=== PATIENT | female | born 1980 | race Caucasian/White ===

== ENCOUNTER 2020-11-18 10:34 | Outpatient (REF) | payer OTHER, SELFPAY ==
[2020-11-18 12:08] LABS: MANUAL DIFF FLAG NO
[2020-11-18 12:22] LABS: Basophils Absolute Auto 0.1 X10*3/uL (0.0-0.2); Basophils Percent Auto 0.7 % (0-2); Eosinophils Absolute Auto 0.2 X10*3/uL (0.0-0.4); Eosinophils Percent Auto 2.7 % (0-4); Hematocrit 42.7 % (37-47); Hemoglobin 14.3 g/dl (12.0-16.0); Imm Gran Abs Auto 0.02 X10*3/uL (0.00-0.03); Imm Gran Pct Auto 0.3 % (0.0-0.4); Lymphocytes Absolute Auto 1.9 X10*3/uL (1.2-4.9); Lymphocytes Percent Auto 27.8 % (20-40); Mean Corpuscular HGB Conc 33.5 g/dl (31.0-35.0); Mean Corpuscular Hemoglobin 30.1 pg (27.0-33.0); Mean Corpuscular Volume 89.9 fL (80-98); Mean Platelet Volume 10.2 fL (9.4-12.3); Monocytes Absolute Auto 0.4 X10*3/uL (0.1-1.2); Monocytes Percent Auto 5.6 % (2-11); Neutrophils Absolute Auto 4.4 X10*3/uL (2.0-8.3); Neutrophils Percent Auto 62.9 % (45-73); Platelet Count 258 X10*3/uL (160-400); Red Blood Count 4.75 X10*6/uL (4.20-5.50); Red Cell Distribution Width 11.9 % (11.0-16.0)
[2020-11-18 13:07] LABS: Erythrocyte Sedimentation Rate 4 MM/HR (0-20)
[2020-11-18 13:08] LABS: Alanine Aminotransferase 10 U/L (0-31); Alkaline Phosphatase 56 U/L (39-117); Anion Gap 11 (12-20); Aspartate Amino Transferase 16 U/L (5-31); Blood Urea Nitrogen 15 mg/dL (9-16); C Reactive Protein 0.17 mg/dL (< or = 0.50); Calcium 8.9 mg/dL (8.4-10.2); Carbon Dioxide 27 mmol/L (22-29); Chloride 104 mmol/L (96-108); Estimated Glomerular Filt Rate > 60; Glucose Random 86 mg/dL (60-115); Potassium 4.4 mmol/L (3.3-5.1); Sodium 138 mmol/L (135-145); Total Protein 7.2 g/dL (6.5-8.0)
[2020-11-18 13:11] LABS: Bilirubin Total 0.3 mg/dL (0.0-1.0)
== END 2020-11-18 10:35 | disposition home or self-care (01) ==
LOC: HO.LAB 10:34
PROVIDERS: PCP Internal Medicine; Visit Provider Student in an Organized Health Care Education/Training Program
DX: M05.9 Rheumatoid arthritis with rheumatoid factor, unspecified (principal); Z79.899 Other long term (current) drug therapy
CPT/HCPCS: 36415; 80053; 85025; 85652; 86140

== ENCOUNTER 2021-09-27 07:59 | Outpatient (REF) | payer OTHER, SELFPAY ==
[2021-09-27 11:26] LABS: MANUAL DIFF FLAG NO
[2021-09-27 11:46] LABS: Basophils Absolute Auto 0.1 X10*3/uL (0.0-0.2); Basophils Percent Auto 0.8 % (0-2); Eosinophils Absolute Auto 0.2 X10*3/uL (0.0-0.4); Eosinophils Percent Auto 3.5 % (0-4); Hematocrit 41.8 % (37.0-47.0); Hemoglobin 14.2 g/dl (12.0-16.0); Imm Gran Abs Auto 0.01 X10*3/uL (0.00-0.03); Imm Gran Pct Auto 0.2 % (0.0-0.4); Lymphocytes Percent Auto 30.2 % (20-40); Mean Corpuscular Hemoglobin 29.5 pg (27.0-33.0); Mean Corpuscular Volume 86.9 fL (80.0-98.0); Mean Platelet Volume 10.4 fL (9.4-12.3); Monocytes Absolute Auto 0.4 X10*3/uL (0.1-1.2); Monocytes Percent Auto 6.2 % (2-11); Neutrophils Absolute Auto 3.9 x10*3/uL (2.0-8.3); Neutrophils Percent Auto 59.1 % (45-73); Platelet Count 253 X10*3/uL (160-400); Red Blood Count 4.81 X10*6/uL (4.20-5.50); Red Cell Distribution Width 11.8 % (11.0-16.0); White Blood Count 6.6 X10*3/uL (4.8-10.8)
[2021-09-27 12:03] LABS: Alanine Aminotransferase 13 U/L (0-31); Albumin Level 3.9 g/dL (3.5-5.0); Alkaline Phosphatase 52 U/L (39-117); Anion Gap 16 (12-20); Aspartate Amino Transferase 16 U/L (5-31); Bilirubin Total 0.4 mg/dL (0.0-1.0); Blood Urea Nitrogen 17 mg/dL (9-16); C Reactive Protein 0.24 mg/dL (< or = 0.50); Calcium 9.2 mg/dL (8.4-10.2); Carbon Dioxide 20 mmol/L (22-29); Chloride 105 mmol/L (96-108); Estimated Glomerular Filt Rate > 60; Glucose Random 72 mg/dL (60-115); Sodium 137 mmol/L (135-145)
[2021-09-27 12:23] LABS: Erythrocyte Sedimentation Rate 5 MM/HR (0-20)
== END 2021-09-27 08:00 | disposition home or self-care (01) ==
LOC: HO.WFDLDS 07:59
PROVIDERS: Visit Provider Nurse Practitioner Family
DX: M05.9 Rheumatoid arthritis with rheumatoid factor, unspecified (principal)
CPT/HCPCS: 36415; 80053; 85025; 85652; 86140

== ENCOUNTER → 2021-09-30 10:00 | Outpatient (BNVA) | payer OTHER, SELFPAY | PROVIDERS: PCP Internal Medicine; Visit Provider Nurse Practitioner Family ==

== ENCOUNTER 2021-10-05 07:56 | Outpatient (RCR) | payer OTHER, SELFPAY ==
--- NOTE | 2021-10-05 12:12 | MHC.PT.EP ---
[facility] [place] Office [place] Office [place] Office [address] Tonja Salazar [address] [phone] F: [phone] F: [phone] F: [phone] F: [phone] Physical Therapy Plan of Care Date of Evaluation: Date of Surgery: NA Diagnosis: CERVICAL SPINE PAIN Assessment: Pt IS 41 YO RHD F REFERRED TO PT FROM [facility] ([facility]) WITH NECK PAIN (Pt ALSO REPORTS SOME HIP PAIN ALSO WHICH WILL BE ADDRESSED AT A LATER TIME). Pt REPORTS LONG HX OF NECK PAIN WITHOUT INJURY. 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 REPORTS NO PT TRIAL IN PAST. PRESENTS WITH SLIGHT FWD HEAD AND ROUNDED SHLDERS (HAS SITTING-TYPE JOB), SLIGHTLY DECREASED END RANGE CERV LAT FLEXION ROM, SHLDER ROM WFLS, DENIES PARESTHESIA. REPORTS UPPER TRAP/CERV MMS FEEL TIGHT (TIGHTNESS NOTED UPON PALPATION), Pt WITH NEGATIVE MODIFIED SPURLING TEST BUT REPORT SLIGHT SXS WITH RETURN TO NEUTRAL FROM L CERV LAT FLEX/EXT/ROT. SHOULD BENEFIT FROM PT TO HELP EASE UPPER BODY MM TENSION TO HELP ALLEVIATE NECK PAIN. SHOULD BENEFIT FROM POSTURE WORK AND UPPER BODY/CERV STRENGTHENING. Frequency and Duration: The patient will be seen 2X/WK X 6 WKS Short Term Goals: 1. INCREASED POSTURE AWARENESS AND AWARENESS NECK CARE 2. IMPROVED SLEEP 3. I HEP WITH DC EX PLAN Assisted Goals: 1. IMPROVED NDI ( SOC) 2. DECREASED CERV PAIN AT LEAST 50% WITH ADLS 3. CERV LAT FLEX ROM EQUAL B Treatment Plan: Modalities to reduce pain, spasms and effusion. Manual therapy to restore motion and function. Therapeutic exercise to improve strength and flexibility. Neuromuscular re-education for posture and balance. Therapeutic activities to return to functional activities of daily living. Electronically signed by: BURT MURO PT Please sign and return to therapist. Thank you for your referral.
--- NOTE | 2021-10-28 09:39 | MHC.PT.DC ---
[facility] [place] Office [place] Office [place] Office [address] Tonja Salazar [address] [phone] F: [phone] F: [phone] F: [phone] F: [phone] Physical Therapy Discharge Report Diagnosis: CERVICAL SPINE PAIN Date of Surgery: NA Date of Evaluation: 10/05/21 Date of Discharge: 10/28/21 Treatments to Date: 1 Cancellations to Date: No Shows to Date: Discharge Status: Patient Elected to Stop Discharge Summary: Pt SEEN FOR INIT EVAL. PER THAT ASSESSMENT:Pt IS 41 YO RHD F REFERRED TO PT FROM [facility] ([facility]) WITH NECK PAIN (Pt ALSO REPORTS SOME HIP PAIN ALSO WHICH WILL BE ADDRESSED AT A LATER TIME). Pt REPORTS LONG HX OF NECK PAIN WITHOUT INJURY. 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 REPORTS NO PT TRIAL IN PAST. PRESENTS WITH SLIGHT FWD HEAD AND ROUNDED SHLDERS (HAS SITTING-TYPE JOB), SLIGHTLY DECREASED END RANGE CERV LAT FLEXION ROM, SHLDER ROM WFLS, DENIES PARESTHESIA. REPORTS UPPER TRAP/CERV MMS FEEL TIGHT (TIGHTNESS NOTED UPON PALPATION), Pt WITH NEGATIVE MODIFIED SPURLING TEST BUT REPORT SLIGHT SXS WITH RETURN TO NEUTRAL FROM L CERV LAT FLEX/EXT/ROT. SHOULD BENEFIT FROM PT TO HELP EASE UPPER BODY MM TENSION TO HELP ALLEVIATE NECK PAIN. SHOULD BENEFIT FROM POSTURE WORK AND UPPER BODY/CERV STRENGTHENING. 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 Thank you for your referral.
== END 2021-10-28 09:40 | disposition home or self-care (01) ==
LOC: HO.PTWFD 07:56
PROVIDERS: PCP Internal Medicine; Visit Provider Nurse Practitioner Family
DX: M54.2 Cervicalgia (principal)
CPT/HCPCS: 97110; 97140; 97161

== ENCOUNTER 2022-04-04 13:06 | Outpatient (REF) | payer OTHER, SELFPAY ==
--- NOTE | ~2022-04-04 | XR_ITS ---
EXAMINATION: XR SACROILIAC JOINTS CLINICAL INFORMATION: Pain COMPARISON: Lumbar spine x-ray October 2016 TECHNIQUE: 3 views of the sacroiliac joints FINDINGS: Bone alignment is normal. No fracture or dislocation is seen. The sacroiliac joints are normal. Transitional lumbar sacral anatomy with pseudoarticulation of S1 and S2 on the right similar to lumbar spine x-ray. Normal soft tissues.. XR/XR sacroiliac joint min 3V IMPRESSION: Normal sacroiliac joints.
[2022-04-04 13:27] LABS: MANUAL DIFF FLAG NO
[2022-04-04 13:53] LABS: Basophils Absolute Auto 0.1 X10*3/uL (0.0-0.2); Basophils Percent Auto 0.9 % (0-2); Eosinophils Absolute Auto 0.2 X10*3/uL (0.0-0.4); Eosinophils Percent Auto 3.2 % (0-4); Hematocrit 40.6 % (37.0-47.0); Hemoglobin 13.7 g/dl (12.0-16.0); Imm Gran Abs Auto 0.01 X10*3/uL (0.00-0.03); Imm Gran Pct Auto 0.2 % (0.0-0.4); Lymphocytes Percent Auto 36.1 % (20-40); Mean Corpuscular HGB Conc 33.7 g/dl (31.0-35.0); Mean Corpuscular Hemoglobin 29.3 pg (27.0-33.0); Mean Corpuscular Volume 86.9 fL (80.0-98.0); Mean Platelet Volume 10.2 fL (9.4-12.3); Monocytes Absolute Auto 0.4 X10*3/uL (0.1-1.2); Neutrophils Absolute Auto 2.9 x10*3/uL (2.0-8.3); Neutrophils Percent Auto 52.6 % (45-73); Platelet Count 281 X10*3/uL (160-400); Red Blood Count 4.67 X10*6/uL (4.20-5.50); Red Cell Distribution Width 12.3 % (11.0-16.0); White Blood Count 5.6 X10*3/uL (4.8-10.8)
[2022-04-04 15:05] LABS: Erythrocyte Sedimentation Rate 8 MM/HR (0-20)
[2022-04-04 16:36] LABS: Alanine Aminotransferase 11 U/L (0-31); Albumin Level 3.9 g/dL (3.5-5.0); Alkaline Phosphatase 62 U/L (39-117); Anion Gap 13 (12-20); Aspartate Amino Transferase 15 U/L (5-31); Bilirubin Total < 0.2 mg/dL (0.0-1.0); Blood Urea Nitrogen 15 mg/dL (9-16); C Reactive Protein 0.31 mg/dL (< or = 0.50); Calcium 9.4 mg/dL (8.4-10.2); Carbon Dioxide 24 mmol/L (22-29); Chloride 107 mmol/L (96-108); Estimated Glomerular Filt Rate > 60; Glucose Random 96 mg/dL (60-115); Potassium 4.6 mmol/L (3.3-5.1); Sodium 139 mmol/L (135-145)
[2022-04-11 08:12] LABS: HLA B27 Negative (Negative)
== END 2022-04-04 13:07 | disposition home or self-care (01) ==
LOC: HO.LAB 13:06
PROVIDERS: PCP Internal Medicine; Visit Provider Nurse Practitioner Family
DX: M05.9 Rheumatoid arthritis with rheumatoid factor, unspecified (principal); M53.3 Sacrococcygeal disorders, not elsewhere classified
CPT/HCPCS: 36415; 72202; 80053; 85025; 85652; 86140; 86812

== ENCOUNTER 2022-07-31 09:21 | Outpatient (REF) | payer OTHER, SELFPAY ==
--- NOTE | ~2022-07-31 | XR_ITS ---
EXAMINATION: XR CERVICAL SPINE CLINICAL INFORMATION: Neck pain COMPARISON: Previous x-ray October 2016 TECHNIQUE: 3 views of the cervical spine were obtained. FINDINGS: Bone alignment is normal. No acute fracture or dislocation. Slight loss of height of the anterior superior endplate of the C4 vertebral body questionable for congenital variant versus changes related to old trauma. This is unchanged. Degenerative spondylosis and degenerative disc disease from C5-C6 to C7-T1. Mild degenerative spondylosis at C4-C5. Prevertebral soft tissues are normal. XR/XR cervical spine 2V IMPRESSION: Multilevel degenerative changes of the lower cervical spine increased from 2017 exam.
--- NOTE | ~2022-07-31 | MR_ITS ---
EXAMINATION: MR PELVIS WITHOUT CONTRAST CLINICAL INFORMATION: Low back pain x 7 years. COMPARISON: Radiographs dated 04/04/2022. TECHNIQUE: Multiplanar MR imaging was obtained through the pelvis on a 1.5 Lupe magnet with special attention to the sacroiliac joints. FINDINGS: Sacroiliac joints appear relatively well preserved without significant subchondral marrow signal abnormalities. Small marginal osteophytes are suspected. Articular cartilage appears relatively well preserved. No effusions or synovitis. No findings of sacroiliitis. No acute osseous abnormalities are identified in the remainder the osseous pelvis, though it is incompletely assessed on these images. No osseous lesions are identified. Mild osteoarthritis of the pubic symphysis. Hip joints are not well seen. There is Castellvi type IIA transitional anatomy at the lumbosacral junction with a degenerated pseudoarticulation between the right L5 transverse process and the sacrum. There is [id number] degenerative disc disease at L4-L5 with Modic type I and type II marrow changes, loss of intervertebral disc height, and a diffuse disc bulge. Mild right neural foraminal encroachment is suspected due to the disc bulge. This level is incompletely assessed on these images. Imaged intrapelvic soft tissues are unremarkable. No appreciable adenopathy. No acute bowel abnormalities. MR/MR pelvis wo con IMPRESSION: 1. Normal MR appearance of the sacroiliac joints. No evidence of sacroiliitis. 2. Moderate to severe degenerative disc disease at L4-L5, incompletely assessed on this study. 3. 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
== END 2022-07-31 09:22 | disposition home or self-care (01) ==
LOC: HO.MRI 09:21
PROVIDERS: PCP Internal Medicine; Visit Provider Nurse Practitioner Family
DX: M53.3 Sacrococcygeal disorders, not elsewhere classified (principal); M54.2 Cervicalgia
CPT/HCPCS: 72040; 72195

== ENCOUNTER 2024-02-28 07:55 | Outpatient (REF) | payer OTHER, SELFPAY ==
[2024-02-28 08:13] LABS: MANUAL DIFF FLAG NO
[2024-02-28 08:49] LABS: Appearance Urine Clear; Color Urine Dark Yellow; Glucose Urine UA Negative (Negative); Leukocyte Esterase Urine Negative (Negative); Nitrite Urine Negative (Negative); Specific Gravity - Urine 1.025 (1.005-1.025); UMIC TRIGGER UA YES; Urine Blood Trace (Negative); Urine Ketones Trace mg/dL (Negative); Urine Protein Negative (Neg-Trace)
[2024-02-28 08:52] LABS: Bacteria Urine None Seen (None Seen); Hyaline Casts Urine 0-2 /LPF (0-2); Squamous Epithelial Cell Urine 0-2 /HPF (0-2); WBC Urine 0-5 /HPF (0-5)
[2024-02-28 08:54] LABS: Basophils Percent Auto 0.7 % (0-2); Eosinophils Absolute Auto 0.3 X10*3/uL (0.0-0.4); Eosinophils Percent Auto 4.3 % (0-4); Hematocrit 39.8 % (37.0-47.0); Hemoglobin 13.6 g/dl (12.0-16.0); Imm Gran Abs Auto 0.01 X10*3/uL (0.00-0.03); Imm Gran Pct Auto 0.2 % (0.0-0.4); Lymphocytes Absolute Auto 1.9 X10*3/uL (1.2-4.9); Lymphocytes Percent Auto 32.7 % (20-40); Mean Corpuscular HGB Conc 34.2 g/dl (31.0-35.0); Mean Corpuscular Hemoglobin 29.1 pg (27.0-33.0); Mean Corpuscular Volume 85.2 fL (80.0-98.0); Mean Platelet Volume 9.9 fL (9.4-12.3); Monocytes Absolute Auto 0.4 X10*3/uL (0.1-1.2); Monocytes Percent Auto 6.9 % (2-11); Neutrophils Absolute Auto 3.2 x10*3/uL (2.0-8.3); Neutrophils Percent Auto 55.2 % (45-73); Platelet Count 267 X10*3/uL (160-400); Red Blood Count 4.67 X10*6/uL (4.20-5.50); Red Cell Distribution Width 12.8 % (11.0-16.0); White Blood Count 5.8 X10*3/uL (4.8-10.8)
[2024-02-28 09:03] LABS: Alanine Aminotransferase 13 U/L (0-31); Albumin Level 3.7 g/dL (3.5-5.0); Alkaline Phosphatase 69 U/L (39-117); Anion Gap 13 (12-20); Aspartate Amino Transferase 16 U/L (5-31); Bilirubin Total 0.3 mg/dL (0.0-1.0); Blood Urea Nitrogen 13 mg/dL (9-16); C Reactive Protein 0.81 mg/dL (< or = 0.50); Calcium 9.1 mg/dL (8.4-10.2); Carbon Dioxide 23 mmol/L (22-29); Chloride 108 mmol/L (96-108); Estimated Glomerular Filt Rate > 60; Glucose Random 79 mg/dL (60-115); Potassium 3.7 mmol/L (3.3-5.1); Sodium 140 mmol/L (135-145); Total Protein 6.9 g/dL (6.5-8.0); Uric Acid 4.1 mg/dL (2.4-5.7)
[2024-02-28 09:25] LABS: HBS Num1 101.96 mIU/mL (0-7.99); HBc Num1 0.12 S/CO (0.00-0.79); HBsAGNum1 0.18 S/CO (0.00-0.99); Hepatitis A Antibody IgM 0.15 Index (0-0.79); Hepatitis B Core Antibody Nonreactive (Nonreactive); Hepatitis B Surface Antigen Negative (Negative); ~HepC Num1 0.14 S/CO (0.00-0.79); ~Hepatitis A Antibody IgM Nonreactive (Nonreactive); ~Hepatitis B Surface Antibody REACTIVE (Nonreactive); ~Hepatitis C Antibody Nonreactive (Nonreactive)
[2024-02-28 09:37] LABS: Erythrocyte Sedimentation Rate 12 MM/HR (0-20)
[2024-02-29 12:48] LABS: Prot Elec - Albumin 3.7 g/dL (3.8-4.8); Prot Elec - Alpha1 0.3 g/dL (0.2-0.3); Prot Elec - Alpha2 0.7 g/dL (0.5-0.9); Prot Elec - Beta 1 0.5 g/dL (0.4-0.6); Prot Elec - Beta 2 0.4 g/dL (0.2-0.5); Prot Elec - Gamma 1.1 g/dL (0.8-1.7); Prot Elec - Total Protein 6.7 g/dL (6.1-8.1)
[2024-02-29 14:13] LABS: Anti-Centromere B Antibodies <1.0 NEG AI (<1.0 NEG)
[2024-02-29 14:34] LABS: Anti DNA DS Antibody 2 IU/mL; Antibody to SS-A Antigen <1.0 NEG AI (<1.0 NEG); Antibody to SS-B Antigen <1.0 NEG AI (<1.0 NEG); SM/Ribonucleoprotein Ab <1.0 NEG AI (<1.0 NEG); Scleroderma 70 Antibody <1.0 NEG AI (<1.0 NEG); Smith Protein <1.0 NEG AI (<1.0 NEG)
[2024-03-02 08:53] LABS: TS Negative Control Passed; TS Panel A 0; TS Panel B 0; TS Positive Control Passed; TSpotTB Negative (Negative)
[2024-03-03 14:34] LABS: IgA 227 mg/dL (47-310); IgG 1208 mg/dL (600-1640); IgM 101 mg/dL (50-300)
[2024-03-04 12:14] LABS: Vitamin D 25-OH, D2 10 ng/mL; Vitamin D 25-OH, D3 38 ng/mL; Vitamin D 25-OH, Total 48 ng/mL (30-100)
[2024-03-05 08:54] LABS: Complement C3 104 mg/dL (83-193)
[2024-03-06 15:43] LABS: Anti Nuclear Antibody Pattern Nuclear, Speckled; Anti Nuclear Antibody Screen POSITIVE (NEGATIVE); Anti Nuclear Antibody Titer 1:40 titer
== END 2024-02-28 07:56 | disposition home or self-care (01) ==
LOC: HO.LAB 07:55
PROVIDERS: PCP Internal Medicine; Visit Provider Nurse Practitioner Family
DX: M05.9 Rheumatoid arthritis with rheumatoid factor, unspecified (principal); M25.50 Pain in unspecified joint; Z11.9 Encounter for screening for infectious and parasitic diseases, unspecified
CPT/HCPCS: 36415; 80053; 81001; 82306; 82550; 82784; 84165; 84550; 85025; 85652; 86038; 86039; 86140; 86160; 86225; 86235; 86334; 86481; 86704; 86706; 86709; 86803; 87340

== ENCOUNTER 2024-03-04 15:43 | Outpatient (AMB) | payer OTHER, SELFPAY ==
[2024-03-04 15:45] VITALS: BP 137/78; PULSE 88; O2SAT 97; BMI 37.9
--- NOTE | 2024-03-04 15:45 | MHC.OFFVIS ---
Vital Signs 03/04/24 15:45 Height 5 ft 5 in Weight 227 lb 11.8 oz BMI 37.9 BP 137/78 Blood Pressure Location Rt brachial Position Sitting Pulse 88 Pulse Oximetry (%) 97 Intake Visit Reasons: RA Intake Note: Patient presents today for RA follow up. Patient reports no concerns today. 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 43-year-old female with seropositive RA returns for follow-up. She takes hydroxychloroquine 200 mg daily. She states that 2 tabs daily cause GI upset. states that over the last 6 months or so she has been having worsening low back and hip pain. Back pain is worse when she sits down for some time. She has bilateral groin pain in the middle of the night. She used to take Aleve 1-2 tabs a day but over the last 6 months she has been taking ibuprofen 600 mg daily. It does help her back pain but does not completely take it away. she has morning stiffness of her back lasting 15-20 minutes. She does not recall ever having any pain or swelling in her peripheral joints. She states that she was diagnosed with Crohn's colitis 2018 after a biopsy but she never required any Specific treatment. her mother has psoriatic arthritis and her maternal grandmother had rheumatoid arthritis. Previous hx: Patient admits to fatigue that started in 2005, which was around the time that she was diagnosed with RA. She states that she has never had any significant joint swelling. She denies joint pain, swelling or stiffness in her hands and feet today. She denies ever having pain in her feet. She admits to some stiffness in the morning in her hips that lasts for 30 minutes. She states that her symptoms are worse now than in previous months. Pain is most notable when lying on the hips or first thing in the morning when bending over to pick something off the ground. She also reports neck pain, for which she was taking tizanidine now with little effect. She states that her neck pain is constant and nothing makes it feels better. She has tried PT and did not find it helpful. She states that her joint pain is improved with Aleve 220mg once a day. She states that she when took the Aleve daily in 2017 she had a Chrons flare. She states that she is taking Aleve almost daily now, no Chrons flare since [id number] and her pain is improved with the Aleve. She admits to some depression. Denies sleep disturbance. Diagnosed with Crohns in 2018 while she was . She states that her disease is currently stable, states that she would get flares when she is stressed. She has not required any medication for this and has not followed up since 2018, Dr Jesusita Manzo at [facility]. No bloody diarrhea or mucus in stool. PENDING SALE TO [facility] Medical History (Updated 03/04/24 @ 22:10 by Eduardo Alarcon MD) Crohn disease Seropositive rheumatoid arthritis Surgical History History of carpal tunnel release H/O hemorrhoidectomy Hx of lithotripsy Hx of section Family History Father No problems noted. 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[facility] [place] Reports back pain, Denies joint swelling and Reports stiffness Physical Exam Vital Signs: Last Vital Signs Pulse 88 03/04/24 15:45 BP 137/78 03/04/24 15:45 Pulse Ox 97 03/04/24 15:45 BMI result Body Mass Index 37.9 Const General: cooperative, healthy appearing and comfortable Nutritional Appearance: obese morbidly obese Orientation/consciousness: patient oriented x3 Limitations: no limitations HEENT Head: Yes normocephalic and Yes atraumatic Resp Effort & Inspection: normal respiratory effort and able to speak in complete sentences Auscultation: clear to auscultation bilaterally Cardio Rate: regular rate Rhythm: regular rhythm Skin General skin exam: no rashes or lesions noted Neuro General: patient oriented x3 Extrem Other: No active synovitis both hands wrists elbows Normal range of motion of shoulders without pain Negative straight leg raise test bilaterally Negative Fabere test bilaterally No groin pain with flexion adduction and internal rotation bilaterally No knee swelling or tenderness No ankle swelling or tenderness bilaterally Assessment & Plan Assessment & Plan (1) Non-radiographic axial spondyloarthritis: Code(s): M45.A0 - Non-radiographic axial spondyloarthritis of unspecified sites in spine Category: Medical Plan: this is a 43 year old female who presents for follow-up of rheumatoid arthritis. Patient states that she has had chronic low back pain for years however over the last year it has become progressively worse. She has nocturnal inflammatory back pain symptoms. Symptoms improved with ibuprofen 600 mg daily. We cannot give higher doses of NSAIDs as patient has known Crohn's colitis which can flare with increasing NSAID use. Inflammatory markers are elevated. clinical picture consistent with non radiographic axial spa. patient is on hydroxychloroquine for her rheumatoid arthritis which is well controlled however she needs a different DMARD for her non radiographic Axial spa. Discussed risks and benefits of Humira. Patient agreed to proceed. Will start prior authorization for Humira. Labs before next visit in 3 months (2) Seropositive rheumatoid arthritis: Comment: +CCP +[id number] -ve RF dx 2006 Q 11/2019 effective Code(s): M05.9 - Rheumatoid arthritis with rheumatoid factor, unspecified Category: Medical Plan: well controlled with hydroxychloroquine 200 mg daily. 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 Patient follows up regularly with [facility] adf consultant Plan I spent 45 minutes reviewing patient's chart, evaluating patient, ordering diagnostic workup, counseling patient and documenting in the chart Orders: Orders Complete Blood Count Auto Diff 3 Months M05.9 - Rheumatoid arthritis with rheumatoid factor, unspecified Comprehensive Met. Panel 3 Months M05.9 - Rheumatoid arthritis with rheumatoid factor, unspecified C Reactive Protein 3 Months M05.9 - Rheumatoid arthritis with rheumatoid factor, unspecified Erythrocyte Sedimentation Rate 3 Months M05.9 - Rheumatoid arthritis with rheumatoid factor, unspecified HLA B27 Today M45.A0 - Non-radiographic axial spondyloarthritis of unspecified sites in spine Medications: New hydroxychloroquine 200 mg PO DAILY 90 tabs 1RF M05.9 - Rheumatoid arthritis with rheumatoid factor, unspecified Coding Level of Care Code Est Pt Level 5 (22630) Diagnoses Non-radiographic axial spondyloarthritis M45.A0 Seropositive rheumatoid arthritis M05.9 DDD (degenerative disc disease), lumbosacral M51.37 Long-term use of hydroxychloroquine Z79.899
== END 2024-03-04 16:28 | disposition home or self-care (01) ==
PROVIDERS: PCP Internal Medicine; Visit Provider Student in an Organized Health Care Education/Training Program
DX: M05.79 Rheumatoid arthritis with rheumatoid factor of multiple sites without organ or systems involvement (principal); M51.37 Other intervertebral disc degeneration, lumbosacral region; Z79.899 Other long term (current) drug therapy
CPT/HCPCS: 99214

== ENCOUNTER → 2024-03-04 15:43 | Outpatient (BNVA) | payer OTHER, SELFPAY | PROVIDERS: PCP Internal Medicine; Visit Provider Student in an Organized Health Care Education/Training Program ==